=== PATIENT | male | born 1965 | race Caucasian/White ===

== ENCOUNTER 2020-05-05 08:51 | Emergency (ER) | payer OTHER ==
[~2020-05-05] VITALS: Ht 185.4 cm; Wt 111.1 kg
[2020-05-05] MEDS ORDERED: NOHOMEMEDICATIONS (08:57)
[2020-05-05 10:14] VITALS: BP 125/79
== END 2020-05-05 10:20 | disposition home or self-care (01) ==
LOC: ER 08:51
DX: S01.312A Laceration without foreign body of left ear, initial encounter (principal); S61.411A Laceration without foreign body of right hand, initial encounter; M25.512 Pain in left shoulder; M25.522 Pain in left elbow; M54.6 Pain in thoracic spine; Z88.0 Allergy status to penicillin; V49.9XXA Car occupant (driver) (passenger) injured in unspecified traffic accident, initial encounter; Y93.89 Activity, other specified; Y92.89 Other specified places as the place of occurrence of the external cause; Y99.8 Other external cause status